=== PATIENT | female | born 1940 | race African-American/Black ===

== ENCOUNTER 2019-01-22 14:09 | Inpatient (IN) | payer OTHER ==
[~2019-01-22] VITALS: Ht 160 cm; Wt 97.5 kg
[2019-01-22] MEDS ORDERED: ONDANSETRON HCL 4MG/2ML INJ IV STA (15:49)
[2019-01-22] MEDS ORDERED: SODIUM CHLORIDE 0.9% 1,000 ML IV ONE (15:49)
[2019-01-22 16:09] LABS: BASOPHILS % 0.2 % (0.0-2.0); EOSINOPHILS % 0.1 % (0.0-5.0); HEMATOCRIT. 43.1 % (36.0-48.0); HEMOGLOBIN. 14.1 g/dL (12.0-16.0); LYMPHOCYTES % 9.6 % (20.0-50.0); MEAN CORPUSCULAR VOLUME 91.4 fL (81.0-99.0); MEAN PLATELET VOLUME 9.9 fl (7.4-10.4); MONOCYTES % 3.2 % (2.0-8.0); NEUTROPHILS % 86.9 % (40.0-76.0); PLATELET 162 x1000/uL (130-400); RED BLOOD CELL COUNT 4.71 mill/uL (4.2-5.4); RED CELL DISTRIBUTION WIDTH 14.9 % (11.6-14.6)
[2019-01-22 16:15] LABS: CHLORIDE 105 mEq/L (98-107)
[2019-01-22 16:18] LABS: INR 1.1; PARTIAL THROMBOPLASTIN TIME 24.2 sec (23.4-31.0); PROTHROMBIN TIME 11.3 sec (9.6-11.0)
[2019-01-22] MEDS ORDERED: ENOXAPARIN 80MG/0.8ML SYR SUBCUT ONE (17:30)
[2019-01-22] MEDS ORDERED: ASPIRIN 325MG EC TABLET PO ONE (17:30)
[2019-01-22] MEDS ORDERED: AMLODIPINE 5MG TABLET PO ONE (18:30)
[2019-01-22] MEDS ORDERED: ONDANSETRON HCL 4MG/2ML INJ IV PRN (19:30)
[2019-01-22] MEDS ORDERED: MORPHINE SULFATE 2 MG/ML CPJ (NOT FOR IM USE) IV PRN (19:30)
[2019-01-22] MEDS ORDERED: MAGNESIUM/ALUMINUM HYDROXIDE/SIMETHICONE 30ML UDC PO PRN (19:30)
[2019-01-22] MEDS ORDERED: CLONIDINE 0.1MG TABLET PO PRN (19:30)
[2019-01-22] MEDS ORDERED: ACETAMINOPHEN 325MG TABLET PO PRN (19:30)
[2019-01-22 20:00] VITALS: BP 150/85
[2019-01-22 22:00] VITALS: BP 150/85
[2019-01-22] MEDS ORDERED: AMLODIPINE 10MG TABLET PO SCH (23:00)
[2019-01-22] MEDS: SODIUM CHLORIDE 0.45% 1,000 ML IV SCH (23:24)
[2019-01-23] VITALS (7 sets, daily range): BP systolic 128–170; BP diastolic 68–93
[2019-01-23 00:05] LABS: CREATINE KINASE MB FRACTION 4.2 ng/mL (0.5-3.6)
[2019-01-23 06:00] LABS: BASOPHILS % 0.6 % (0.0-2.0); EOSINOPHILS % 1.1 % (0.0-5.0); HEMATOCRIT. 41.2 % (36.0-48.0); HEMOGLOBIN. 13.5 g/dL (12.0-16.0); LYMPHOCYTES % 30.2 % (20.0-50.0); MEAN CORPUSCULAR HEMOGLOBIN 29.7 pg (28.0-32.0); MEAN CORPUSCULAR VOLUME 90.7 fL (81.0-99.0); MEAN PLATELET VOLUME 10.2 fl (7.4-10.4); MONOCYTES % 5.6 % (2.0-8.0); NEUTROPHILS % 62.5 % (40.0-76.0); PLATELET 169 x1000/uL (130-400); RED BLOOD CELL COUNT 4.54 mill/uL (4.2-5.4); RED CELL DISTRIBUTION WIDTH 15.3 % (11.6-14.6)
[2019-01-23 06:11] LABS: CHLORIDE 107 mEq/L (98-107)
[2019-01-23 06:21] LABS: LDL CHOLESTEROL 93 mg/dL (5-100)
[2019-01-23 06:23] LABS: CREATINE KINASE 119 IU/L (26-192); HDL CHOLESTEROL 49 mg/dL (40-59)
[2019-01-23 06:26] LABS: CREATINE KINASE MB FRACTION 3.6 ng/mL (0.5-3.6)
[2019-01-23] MEDS: METOPROLOL TARTRATE 25MG TABLET PO SCH ×2 (08:56→20:18)
[2019-01-23] MEDS ORDERED: ENOXAPARIN 40MG/0.4ML SYR SUBCUT SCH (09:00)
[2019-01-23] MEDS ORDERED: AMLODIPINE 10MG TABLET PO SCH (09:00)
[2019-01-23] MEDS ORDERED: ASPIRIN 81MG EC TABLET PO SCH (09:00)
[2019-01-23] MEDS ORDERED: POTASSIUM CHLORIDE 20MEQ TABLET SR PO NR (10:00)
[2019-01-23] MEDS: SODIUM CHLORIDE 0.45% 1,000 ML IV SCH (19:28)
== END 2019-01-24 00:22 | disposition short-term general hospital (02) | DRG 641 ==
LOC: ER 14:09 → 7WST 18:05 → EDBEDREQ 18:11 → EDBEDREQTM 18:11 → ENRESERVTM 20:40 → ENRESERVDT 20:40
PROVIDERS: ADMIT Hospitalist; ATTEND Hospitalist
DX: E87.6 Hypokalemia (principal); R11.2 Nausea with vomiting, unspecified; E66.01 Morbid (severe) obesity due to excess calories; E78.00 Pure hypercholesterolemia, unspecified; E78.5 Hyperlipidemia, unspecified; I10 Essential (primary) hypertension; Z82.49 Family history of ischemic heart disease and other diseases of the circulatory system; Z90.710 Acquired absence of both cervix and uterus; Z68.38 Body mass index [BMI] 38.0-38.9, adult; Z88.6 Allergy status to analgesic agent; Z88.2 Allergy status to sulfonamides
CPT/HCPCS: 36415; 71045; 80061; 82550; 82553; 83880; 84484; 93005; 93306; 93970; 99285; J1650; J2405; J7030

== ENCOUNTER 2024-05-08 08:34 | Emergency (ER) | payer OTHER ==
[~2024-05-08] VITALS: Ht 167.6 cm; Wt 80.0 kg
[2024-05-08 08:37] VITALS: O2SAT 99
[2024-05-08 09:36] LABS: BASOPHILS % 0.5 % (0.0-2.0); HEMATOCRIT. 43.2 % (36.0-48.0); HEMOGLOBIN. 14.1 g/dL (12.0-16.0); LYMPHOCYTES % 25.9 % (20.0-50.0); MEAN CORPUSCULAR HEMOGLOBIN 29.9 pg (28.0-32.0); MEAN CORPUSCULAR HGB CONC 32.6 g/dL (31.0-37.0); MEAN CORPUSCULAR VOLUME 91.9 fL (81.0-99.0); MEAN PLATELET VOLUME 9.8 fl (7.4-10.4); NEUTROPHILS % 65.6 % (40.0-76.0); PLATELET 268 x1000/uL (130-400); RED CELL DISTRIBUTION WIDTH 15.6 % (11.6-14.6); WHITE BLOOD COUNT 4.7 x1000/uL (4.5-11.0)
[2024-05-08] MEDS: LABETALOL 5MG/ML 4ML INJ IV ONE (09:36)
[2024-05-08] MEDS: ASPIRIN 300MG SUPP PR ONE (09:37)
[2024-05-08 09:42] LABS: CHLORIDE 103 mEq/L (98-107); POTASSIUM 5.2 mEq/L (3.5-5.1); SODIUM 138 mEq/L (136-145)
[2024-05-08 09:42] LABS: CLARITY URINE CLEAR (CLEAR); COLOR URINE YELLOW (YELLOW); GLUCOSE URINE NEGATIVE (NEGATIVE); KETONES URINE NEGATIVE (NEGATIVE); LEUKOCYTE ESTERASE URINE 1+ (NEGATIVE); NITRITE URINE NEGATIVE (NEGATIVE); OCCULT BLOOD URINE TRACE (NEGATIVE); PROTEIN URINE NEGATIVE (NEGATIVE); SPECIFIC GRAVITY URINE 1.044 (1.005-1.030); UROBILINOGEN URINE 0.2 E.U./dL (0.2-1.0)
[2024-05-08 09:44] LABS: CALCIUM 8.6 mg/dL (8.7-10.4); CARBON DIOXIDE 26 mEq/L (21-32)
[2024-05-08] MEDS: DILTIAZEM HCL 5MG/ML 5ML VIAL IV ONE (09:46)
[2024-05-08 09:49] LABS: CREATININE 0.8 mg/dL (0.6-1.0); GLUCOSE 162 mg/dL (70-105); UREA NITROGEN BLOOD 14 mg/dL (9-23)
[2024-05-08 09:50] LABS: TROPONIN I HIGH SENSITIVITY 13 ng/L (3.0-34)
[2024-05-08 09:51] LABS: ETHANOL BLOOD < 10 mg/dL (<10)
[2024-05-08 09:52] LABS: *AMPHETAMINES SCREEN URINE NEGATIVE (NEGATIVE)
[2024-05-08 09:54] LABS: *BARBITURATES SCREEN URINE NEGATIVE (NEGATIVE); *BENZODIAZEPINES SCREEN URINE NEGATIVE (NEGATIVE); *COCAINE SCREEN URINE NEGATIVE (NEGATIVE); BACTERIA URINE 1+; CANNABINOID URINE SCREEN NEGATIVE (NEGATIVE); ECSTASY MDMA SCREEN URINE NEGATIVE (NEGATIVE); METHADONE URINE SCREEN NEGATIVE (NEGATIVE); OPIATES URINE SCREEN NEGATIVE (NEGATIVE); PHENCYCLIDINE URINE SCREEN NEGATIVE (NEGATIVE); SQUAMOUS EPITHELIAL CELL URINE FEW /lpf (RARE/1+); WBC URINE 0-2 /hpf (0-2); YEAST URINE NONE SEEN
[2024-05-08] MEDS: IOHEXOL-350 100 ML BOTTLE ONE (09:57)
[2024-05-08 10:07] VITALS: BP 125/69; TEMP 37.1; O2SAT 100
[2024-05-08] MEDS: INSULIN REGULAR (HUMULIN R) 1000UNITS/10ML VIAL IV ONE (10:46)
[2024-05-08 10:50] VITALS: PULSE 71; RESP 20
[2024-05-08] MEDS: ALBUTEROL (0.083%) 2.5MG/3ML NEB HHN ONE (10:51)
[2024-05-08 10:52] LABS: INR 1.1; PROTHROMBIN TIME 12.1 sec (9.6-11.0)
[2024-05-08] MEDS: DEXTROSE 50% WATER 50ML SYRINGE IV ONE (10:54)
[2024-05-08] MEDS: FUROSEMIDE 100MG/10ML VIAL IV STA (10:54)
[2024-05-08] MEDS: FUROSEMIDE 40MG/4ML VIAL IV NR (10:54)
== END 2024-05-08 13:38 ==
LOC: ER 08:34 → CANBEDREQ 10:13 → ER 13:38
DX: I63.9 Cerebral infarction, unspecified (principal); I10 Essential (primary) hypertension; I51.7 Cardiomegaly; E87.5 Hyperkalemia; R06.02 Shortness of breath; E78.00 Pure hypercholesterolemia, unspecified; I48.91 Unspecified atrial fibrillation; Z20.822 Contact with and (suspected) exposure to COVID-19; Z88.2 Allergy status to sulfonamides; Z88.5 Allergy status to narcotic agent
CPT/HCPCS: 80305; 80048; 81003; 80320; 85025; 85610; 84484; 36415; 71045; 70496; 70498; 70450; 94640; 93005; 96374; 96375; 99291; 87426; Q9967; J3490 ×2; J1940 ×2; J1815; 94070; A4606; G0480

== ENCOUNTER 2024-05-17 11:51 | Emergency (ER) | payer OTHER ==
[~2024-05-17] VITALS: Ht 157.5 cm; Wt 94.9 kg
[2024-05-17 11:59] VITALS: O2SAT 100
[2024-05-17 13:24] LABS: CHLORIDE 106 mEq/L (98-107); POTASSIUM 3.6 mEq/L (3.5-5.1); SODIUM 141 mEq/L (136-145)
[2024-05-17 13:25] LABS: CALCIUM 8.5 mg/dL (8.7-10.4); CARBON DIOXIDE 26 mEq/L (21-32)
[2024-05-17 13:27] LABS: BASOPHILS % 0.6 % (0.0-2.0); DIFFERENTIAL COMMENT 0; EOSINOPHILS % 1.5 % (0.0-5.0); HEMATOCRIT. 43.6 % (36.0-48.0); HEMOGLOBIN. 13.4 g/dL (12.0-16.0); LYMPHOCYTES % 25.3 % (20.0-50.0); MEAN CORPUSCULAR HEMOGLOBIN 28.7 pg (28.0-32.0); MEAN CORPUSCULAR HGB CONC 30.9 g/dL (31.0-37.0); MEAN CORPUSCULAR VOLUME 93.1 fL (81.0-99.0); MEAN PLATELET VOLUME 10.7 fl (7.4-10.4); MONOCYTES % 6.2 % (2.0-8.0); NEUTROPHILS % 66.4 % (40.0-76.0); PLATELET 186 x1000/uL (130-400); RED BLOOD CELL COUNT 4.68 mill/uL (4.2-5.4); WHITE BLOOD COUNT 4.5 x1000/uL (4.5-11.0)
[2024-05-17 13:30] LABS: CREATININE 0.9 mg/dL (0.6-1.0); GLUCOSE 130 mg/dL (70-105); UREA NITROGEN BLOOD 13 mg/dL (9-23)
[2024-05-17 13:31] LABS: TROPONIN I HIGH SENSITIVITY 12 ng/L (3.0-34)
[2024-05-17] MEDS: IOHEXOL-350 100 ML BOTTLE ONE (13:42)
[2024-05-17] MEDS: METOPROLOL TARTRATE 5MG/5ML VIAL IV ONE (13:44)
[2024-05-17] MEDS: METOPROLOL TARTRATE 25MG TABLET PO ONE (13:45)
[2024-05-17 13:56] LABS: ETHANOL BLOOD < 10 mg/dL (<10)
[2024-05-17 15:14] LABS: INR 1.1; PROTHROMBIN TIME 11.9 sec (9.6-11.0)
[2024-05-17] MEDS: ASPIRIN 325MG TABLET PO ONE (15:21)
[2024-05-17 18:34] VITALS: BP 180/108; PULSE 107; RESP 19; TEMP 36.7; O2SAT 97
== END 2024-05-17 16:32 | disposition short-term general hospital (02) ==
LOC: ER 11:51
DX: I63.9 Cerebral infarction, unspecified (principal); E78.00 Pure hypercholesterolemia, unspecified; I11.9 Hypertensive heart disease without heart failure; I48.91 Unspecified atrial fibrillation; I70.90 Unspecified atherosclerosis; Z88.2 Allergy status to sulfonamides; Z88.5 Allergy status to narcotic agent
CPT/HCPCS: 80048; 80320; 82962; 85025; 85610; 84484; 36415; 71045; 70496; 70498; 70450; 93005; 96374; 99291; Q9967; J3490; G0480